=== PATIENT | male | born 1960 | race Caucasian/White ===

== ENCOUNTER → 2017-11-22 | Outpatient (CLI) | payer BC ==
[2017-11-22 12:04] LABS: ALT 35 U/L (21-72); AST 26 U/L (17-59); Albumin 4.4 g/dL (3.5-5.0); Alkaline Phosphatase 54 U/L (38-126); Anion Gap 12 mmol/L; Blood Urea Nitrogen 14 mg/dL (9-20); Calcium 9.9 mg/dL (8.4-10.2); Carbon Dioxide 29 mmol/L (22-30); Chloride 100 mmol/L (98-107); Cholesterol 115 mg/dL (<200); Glucose 105 mg/dL (74-99); HDL Cholesterol 36 mg/dL (40-60); LDL Cholesterol,Calculated 55 mg/dL (0-99); Potassium 4.7 mmol/L (3.5-5.1); Sodium 141 mmol/L (137-145); Total Bilirubin 1.6 mg/dL (0.2-1.3); Total Protein 6.9 g/dL (6.3-8.2); Triglycerides 118 mg/dL (<150)
== END ==
LOC: LABWHC1 11:31
PROVIDERS: ATTEND Internal Medicine Interventional Cardiology
DX: E78.2 Mixed hyperlipidemia (principal)
CPT/HCPCS: 36415; 80053; 80061

== ENCOUNTER → 2018-10-07 | Outpatient (CLI) | payer BC ==
[2018-10-07 07:23] LABS: HCT 43.5 % (39.0-53.0); HGB 14.3 gm/dL (13.0-17.5); MCH 30.5 pg (25.0-35.0); MCHC 32.9 g/dL (31.0-37.0); MCV 92.7 fL (80.0-100.0); Mean Platelet Volume 7.8; Platelet Count 225 k/uL (150-450); RBC 4.69 m/uL (4.30-5.90); RDW 13.1 % (11.5-15.5); WBC 6.4 k/uL (3.8-10.6)
[2018-10-07 12:00] LABS: Albumin 4.5 g/dL (3.80-4.90); Albumin/Globulin Ratio 2.25 (1.60-3.17); Anion Gap 8.2 mmol/L (4.00-12.00); Calcium 9.9 mg/dL (8.7-10.3); Carbon Dioxide 25.8 mmol/L (21.6-31.8); LDL Cholesterol,Calculated 66.6 mg/dL (0.0-131.0); Potassium 4.5 mmol/L (3.5-5.5); Total Bilirubin 2.7 mg/dL (0.2-1.2); Total Protein 6.5 g/dL (6.2-8.2); VLDL Calculation 22.4 mg/dL (5.00-40.00)
== END | disposition home or self-care (01) ==
LOC: LABWHC1 06:45
PROVIDERS: ATTEND Internal Medicine
DX: E87.8 Other disorders of electrolyte and fluid balance, not elsewhere classified (principal); E78.41 Elevated Lipoprotein(a); R53.83 Other fatigue; N40.0 Benign prostatic hyperplasia without lower urinary tract symptoms; E78.2 Mixed hyperlipidemia
CPT/HCPCS: 36415; 80053; 80061; 84153; 85027

== ENCOUNTER → 2019-07-03 | Outpatient (CLI) | payer BC ==
[2019-07-03 10:22] LABS: Basophils # (A) 0.1 k/uL (0-0.2); Basophils % (A) 1 %; Eosinophils # (A) 0.4 k/uL (0-0.7); Eosinophils % (A) 5 %; HCT 42.1 % (39.0-53.0); Lymphocytes # (A) 1.6 k/uL (1.0-4.8); Lymphocytes % (A) 22 %; MCH 31.4 pg (25.0-35.0); MCHC 33.3 g/dL (31.0-37.0); MCV 94.4 fL (80.0-100.0); Mean Platelet Volume 8.5; Monocytes # (A) 0.5 k/uL (0-1.0); Monocytes % (A) 7 %; Neutrophils # (A) 4.4 k/uL (1.3-7.7); Neutrophils % (A) 62 %; Platelet Count 209 k/uL (150-450); RBC 4.46 m/uL (4.30-5.90); RDW 12.5 % (11.5-15.5); WBC 7.1 k/uL (3.8-10.6)
[2019-07-03 17:04] LABS: African American GFR (CKD) 85.3 (60.0-200.0); Albumin 4.3 g/dL (3.80-4.90); Albumin/Globulin Ratio 2.39 (1.60-3.17); Anion Gap 6.4 mmol/L (4.00-12.00); BUN/Creat Ratio 12.73 Ratio (12.00-20.00); Calcium 9.9 mg/dL (8.7-10.3); Carbon Dioxide 27.6 mmol/L (21.6-31.8); Chol/HDL Ratio 3.2; Globulin 1.8 g/dL (1.6-3.3); LDL Cholesterol,Calculated 60.2 mg/dL (0.0-131.0); Non-African American GFR(CKD) 73.6 (60.0-200.0); Potassium 4.8 mmol/L (3.5-5.5); Total Bilirubin 1.5 mg/dL (0.2-1.2); Total Protein 6.1 g/dL (6.2-8.2); VLDL Calculation 16.8 mg/dL (5.00-40.00)
== END ==
LOC: LABWHC1 09:19
PROVIDERS: ATTEND Internal Medicine Interventional Cardiology
DX: E78.5 Hyperlipidemia, unspecified (principal); E87.8 Other disorders of electrolyte and fluid balance, not elsewhere classified; R79.9 Abnormal finding of blood chemistry, unspecified; Z12.9 Encounter for screening for malignant neoplasm, site unspecified; Z12.5 Encounter for screening for malignant neoplasm of prostate; Z13.228 Encounter for screening for other metabolic disorders; Z13.220 Encounter for screening for lipoid disorders
CPT/HCPCS: 36415; 80053; 80061; 84153; 85025

== ENCOUNTER 2022-06-21 09:02 | Observation (INO) | payer BC ==
[2022-06-21] MEDS ORDERED: ASPIRIN 81 MG PO STA (09:54)
[2022-06-21] MEDS ORDERED: NITROGLYCERIN OINT 1 INCH/GM PACKET TOPICAL STA (09:54)
--- NOTE | 2022-06-21 09:57 | ED ---
General Adult HPI - General Chief complaint: Chest Pain Stated complaint: Chest Pain Time Seen by Provider: 06/21/22 09:22 Source: patient, RN notes reviewed, old records reviewed (Unable to locate a previous EKG) Mode of arrival: ambulatory Limitations: no limitations - History of Present Illness Initial comments: Patient is a pleasant 61-year-old male presenting to the emergency Department with chest discomfort. Onset of symptoms was 2 days ago. Symptoms have been intermittent. Symptoms do worsen with exertion. Discomfort feels like pressure. When it occurs discomfort does get up to 5/10. Discomfort currently is near resolved. No associated dyspnea, nausea, or diaphoresis. No history of similar symptoms previously however patient does have history of congestive heart failure. No leg pain or leg swelling. - Related Data Allergies Allergy/AdvReac Type Severity Reaction Status Date / Time No Known Allergies Allergy Verified 06/21/22 09:15 Review of Systems ROS Statement: Those systems with pertinent positive or pertinent negative responses have been documented in the HPI. ROS Other: All systems not noted in ROS Statement are negative. Constitutional: Denies: fever Eyes: Denies: eye pain ENT: Denies: ear pain Respiratory: Denies: cough Cardiovascular: Reports: as per HPI, chest pain Endocrine: Denies: fatigue Gastrointestinal: Denies: abdominal pain Genitourinary: Denies: urgency Musculoskeletal: Denies: back pain Skin: Denies: rash Neurological: Denies: weakness Past Medical History Past Medical History: Heart Failure History of Any Multi-Drug Resistant Organisms: None Reported Past Surgical History: Appendectomy Past Psychological History: No Psychological Hx Reported Smoking Status: Never smoker Past Alcohol Use History: None Reported Past Drug Use History: None Reported General Exam Limitations: no limitations General appearance: alert, in no apparent distress Head exam: Present: normocephalic Eye exam: Present: normal appearance Neck exam: Present: normal inspection Respiratory exam: Present: normal lung sounds bilaterally. Absent: chest wall tenderness Cardiovascular Exam: Present: regular rate, normal rhythm, normal heart sounds Expanded Peripheral pulses: 2+: Radial (R), Radial (L), Dorsalis Pedis (R), Dorsalis Pedis (L) GI/Abdominal exam: Present: soft. Absent: tenderness Extremities exam: Present: normal inspection. Absent: pedal edema, calf tenderness Neurological exam: Present: alert Psychiatric exam: Present: normal affect, normal mood Skin exam: Present: normal color Course Vital Signs 06/21/22 06/21/22 09:11 10:25 Temperature 98 F Pulse Rate 66 58 L Respiratory 18 17 Rate Blood Pressure 118/76 112/73 O2 Sat by Pulse 98 99 Oximetry EKG Findings - EKG Results: EKG: interpreted by ERMD (Septal Q waves. Poor R-wave progression. Inverted T waves inferior.), sinus rhythm, normal axis EKG shows: bradycardia Medical Decision Making - Medical Decision Making patient reevaluated and updated. Dr. Crisostomo has been paged for admission, covering for Dr. Urias - Lab Data Result diagrams: 06/21/22 10:29 06/21/22 10:29 Lab Results 06/21/22 06/21/22 06/21/22 Range/Units 10:29 10:29 10:29 WBC 7.6 (3.8-10.6) k/uL RBC 5.07 (4.30-5.90) m/uL Hgb 15.7 (13.0-17.5) gm/dL Hct 46.7 (39.0-53.0) % MCV 92.0 (80.0-100.0) fL MCH 30.9 (25.0-35.0) pg MCHC 33.6 (31.0-37.0) g/dL RDW 12.3 (11.5-15.5) % Plt Count 217 (150-450) k/uL MPV 8.4 Neutrophils % 68 % Lymphocytes % 18 % Monocytes % 6 % Eosinophils % 5 % Basophils % 1 % Neutrophils # 5.1 (1.3-7.7) k/uL Lymphocytes # 1.4 (1.0-4.8) k/uL Monocytes # 0.4 (0-1.0) k/uL Eosinophils # 0.4 (0-0.7) k/uL Basophils # 0.1 (0-0.2) k/uL PT 11.0 (9.0-12.0) sec INR 1.1 (<1.2) APTT 24.2 (22.0-30.0) sec D-Dimer 0.29 (<0.60) mg/L FEU Sodium 137 (137-145) mmol/L Potassium 4.9 (3.5-5.1) mmol/L Chloride 105 (98-107) mmol/L Carbon Dioxide 25 (22-30) mmol/L Anion Gap 7 mmol/L BUN 13 (9-20) mg/dL Creatinine 1.07 (0.66-1.25) mg/dL Est GFR (CKD-EPI)AfAm 87 (>60 ml/min/1.73 sqM) Est GFR (CKD-EPI)NonAf 75 (>60 ml/min/1.73 sqM) Glucose 124 H (74-99) mg/dL Calcium 9.5 (8.4-10.2) mg/dL Magnesium 2.1 (1.6-2.3) mg/dL Total Bilirubin 2.2 H (0.2-1.3) mg/dL AST 29 (17-59) U/L ALT 29 (4-49) U/L Alkaline Phosphatase 67 (38-126) U/L Troponin I (0.000-0.034) ng/mL Total Protein 7.2 (6.3-8.2) g/dL Albumin 4.4 (3.5-5.0) g/dL 06/21/22 Range/Units 10:29 WBC (3.8-10.6) k/uL RBC (4.30-5.90) m/uL Hgb (13.0-17.5) gm/dL Hct (39.0-53.0) % MCV (80.0-100.0) fL MCH (25.0-35.0) pg MCHC (31.0-37.0) g/dL RDW (11.5-15.5) % Plt Count (150-450) k/uL MPV Neutrophils % % Lymphocytes % % Monocytes % % Eosinophils % % Basophils % % Neutrophils # (1.3-7.7) k/uL Lymphocytes # (1.0-4.8) k/uL Monocytes # (0-1.0) k/uL Eosinophils # (0-0.7) k/uL Basophils # (0-0.2) k/uL PT (9.0-12.0) sec INR (<1.2) APTT (22.0-30.0) sec D-Dimer (<0.60) mg/L FEU Sodium (137-145) mmol/L Potassium (3.5-5.1) mmol/L Chloride (98-107) mmol/L Carbon Dioxide (22-30) mmol/L Anion Gap mmol/L BUN (9-20) mg/dL Creatinine (0.66-1.25) mg/dL Est GFR (CKD-EPI)AfAm (>60 ml/min/1.73 sqM) Est GFR (CKD-EPI)NonAf (>60 ml/min/1.73 sqM) Glucose (74-99) mg/dL Calcium (8.4-10.2) mg/dL Magnesium (1.6-2.3) mg/dL Total Bilirubin (0.2-1.3) mg/dL AST (17-59) U/L ALT (4-49) U/L Alkaline Phosphatase (38-126) U/L Troponin I <0.012 (0.000-0.034) ng/mL Total Protein (6.3-8.2) g/dL Albumin (3.5-5.0) g/dL Disposition Clinical Impression: Chest pain Disposition: ADMITTED IP [facility] Is patient prescribed a controlled substance at d/c from ED?: No Referrals: Dayday Urias MD [Primary Care Provider] - 1-2 days Time of Disposition: 11:23
[2022-06-21 10:35] LABS: Basophils # (A) 0.1 k/uL (0-0.2); Basophils % (A) 1 %; Eosinophils # (A) 0.4 k/uL (0-0.7); Eosinophils % (A) 5 %; HCT 46.7 % (39.0-53.0); HGB 15.7 gm/dL (13.0-17.5); Lymphocytes # (A) 1.4 k/uL (1.0-4.8); Lymphocytes % (A) 18 %; MCH 30.9 pg (25.0-35.0); MCHC 33.6 g/dL (31.0-37.0); Mean Platelet Volume 8.4; Monocytes # (A) 0.4 k/uL (0-1.0); Monocytes % (A) 6 %; Neutrophils # (A) 5.1 k/uL (1.3-7.7); Neutrophils % (A) 68 %; Platelet Count 217 k/uL (150-450); RBC 5.07 m/uL (4.30-5.90); RDW 12.3 % (11.5-15.5); WBC 7.6 k/uL (3.8-10.6)
[2022-06-21 10:46] LABS: Albumin 4.4 g/dL (3.5-5.0); Calcium 9.5 mg/dL (8.4-10.2); Magnesium 2.1 mg/dL (1.6-2.3); Potassium 4.9 mmol/L (3.5-5.1); Total Bilirubin 2.2 mg/dL (0.2-1.3); Total Protein 7.2 g/dL (6.3-8.2)
--- NOTE | 2022-06-21 10:48 | XR ---
EXAMINATION TYPE: XR chest 2V DATE OF EXAM: 06/21/2022 HISTORY: Shortness of breath. COMPARISON: 06-23 TECHNIQUE: Single view of the chest is submitted. FINDINGS: Demonstrated are scattered senescent parenchymal change. There is no evidence for focal infiltrate. The heart is stable. Hilar and mediastinal structures are within normal limits. Degenerative changes are seen of the dorsal spine. IMPRESSION: 1. Chronic changes without evidence for acute pulmonary disease.
[2022-06-21 10:51] LABS: INR 1.1 (<1.2); Partial Thromboplastin Time 24.2 sec (22.0-30.0)
[2022-06-21] MEDS ORDERED: NITROGLYCERIN SL TABS 0.4 MG TAB SUBLINGUAL PRN (11:24)
[2022-06-21] MEDS: NITROGLYCERIN OINT 1 INCH/GM PACKET TOPICAL SCH ×3 (13:02→22:58)
[2022-06-21] MEDS: HEPARIN SODIUM,PORCINE/PF 5,000 UNIT/0.5 ML SYRINGE SQ SCH ×2 (17:04→22:57)
[2022-06-21] MEDS: ATORVASTATIN 40 MG TAB PO SCH (20:24)
[2022-06-21] MEDS: METOPROLOL SUCCINATE (ER) 25 MG TAB.ER.24H PO SCH (20:24)
--- NOTE | 2022-06-21 22:44 | P.HPIM ---
History of Present Illness H&P Date: 06/21/22 Chief Complaint: Chest pain Patient is a 61-year-old male with a known history of chronic CHF, hypertrophic cardiomyopathy presents to ER with complaints of chest discomfort mainly in the left retrosternal region. Patient has been having symptoms for the past 2 to 3 days. Patient has been having constant dull pressure-like sensation, 5 out of 10 in severity. No radiation of the pain. Denies any associated nausea vomiting or diaphoresis. No leg swelling. Patient otherwise denies any complaints of cough or sputum production. No headache or dizziness or lightheadedness. No palpitations. Chest x-ray showed chronic changes without evidence for acute pulmonary disease. EKG showed sinus rhythm with T wave versions in the inferior leads. Troponin x3 negative, D-dimer is 0.29 All other laboratory data reviewed. Review of Systems Constitutional: Patient denies any fever or chills . no Generalized weakness. Abdomen: Patient denied any nausea or vomiting or abd. pain Cardiovascular: Patient does have left retrosternal chest pain. no short of breath no palpitations. Respiratory: patient denied any cough . no sputum production. No shortness of breath Neurologic: Patient denied any numbness or tingling headache. Musculoskeletal: Patient denies any complaints of joint swelling or deformity. Skin: Negative Psychiatric: Negative Endocrine: No heat or cold intolerance. No recent weight gain. Genitourinary: No dysuria or hematuria. All other 14 point ROS negative except the above Past Medical History Past Medical History: Heart Failure History of Any Multi-Drug Resistant Organisms: None Reported Past Surgical History: Appendectomy Past Psychological History: No Psychological Hx Reported Smoking Status: Never smoker Past Alcohol Use History: None Reported Past Drug Use History: None Reported Medications and Allergies Home Medications Medication Instructions Recorded Confirmed Type Aspirin 81 mg PO DAILY 06/21/22 06/21/22 History Atorvastatin [Lipitor] 40 mg PO HS 06/21/22 06/21/22 History Metoprolol Succinate (ER) [Toprol 25 mg PO HS 06/21/22 06/21/22 History Xl] Sacubitril/Valsartan [Entresto 24 1 tab PO BID 06/21/22 06/21/22 History mg-26 mg Tablet] Spironolactone [Aldactone] 25 mg PO DAILY 06/21/22 06/21/22 History Allergies Allergy/AdvReac Type Severity Reaction Status Date / Time No Known Allergies Allergy Verified 06/21/22 12:10 Physical Exam Vitals: Vital Signs Temp Pulse Resp BP Pulse Ox 06/21/22 13:00 69 16 128/80 100 06/21/22 12:30 62 15 119/70 100 06/21/22 12:00 61 15 119/85 99 06/21/22 11:30 64 18 111/75 100 06/21/22 11:00 54 L 15 109/82 100 06/21/22 10:25 58 L 17 112/73 99 06/21/22 09:11 98 F 66 18 118/76 98 Intake and Output 06/20/22 06/21/22 06/21/22 22:59 06:59 14:59 Other: Weight 90.718 kg PHYSICAL EXAMINATION: Patient is lying in the bed comfortably, no acute distress, awake alert and oriented.. HEENT: Normocephalic. Neck is supple. Pupils reactive. Nostrils clear. Oral cavity is moist. Neck reveals no JVD, carotid bruits, or thyromegaly. CHEST EXAMINATION: Trachea is central. Symmetrical expansion. Lung leonard clear to auscultation and percussion. CARDIAC: Normal S1, S2 with no gallops. No murmurs ABDOMEN: Soft. Bowel sounds present. Nontender. No organomegaly. No abdominal bruits. Extremities: reveal no edema. No clubbing or cyanosis Neurologically awake, alert, oriented x3 with well-coordinated movements. No focal deficits noted Skin: No rash or skin lesions. Psychiatric: Coperative. Nonsuicidal, Musculoskeletal: No joint swelling or deformity. Normal range of motion. Results CBC & Chem 7: 06/21/22 10:29 06/21/22 10:29 Labs: Abnormal Lab Results - Last 24 Hours (Table) 06/21/22 Range/Units 10:29 Glucose 124 H (74-99) mg/dL Total Bilirubin 2.2 H (0.2-1.3) mg/dL Thrombosis Risk Factor Assmnt - DVT/VTE Prophylaxis DVT/VTE Prophylaxis: Pharmacologic Prophylaxis ordered Assessment and Plan Assessment: Atypical chest pain. Rule out ACS History of chronic CHF EF not known Hypertrophic cardiomyopathy DVT prophylaxis with heparin subcu Plan: Patient with current on telemetry monitoring. Serial EKG and troponin x3. Continue with aspirin and statins and metoprolol and Aldactone as per home regimen. Cardiology was consulted for evaluation. Continue to follow closely. Time with Patient: Greater than 30
[2022-06-21] MEDS: SACUBITRIL/VALSARTAN 24 MG-26 MG TABLET PO SCH (22:57)
[2022-06-22] MEDS: NITROGLYCERIN OINT 1 INCH/GM PACKET TOPICAL SCH ×4 (05:12→23:45)
[2022-06-22 08:57] LABS: Chol/HDL Ratio 3.21 Ratio
[2022-06-22] MEDS: ASPIRIN 325 MG TAB PO SCH (08:59)
[2022-06-22] MEDS: HEPARIN SODIUM,PORCINE/PF 5,000 UNIT/0.5 ML SYRINGE SQ SCH ×3 (08:59→16:10)
[2022-06-22] MEDS: SPIRONOLACTONE 25 MG TAB PO SCH (08:59)
[2022-06-22] MEDS: SACUBITRIL/VALSARTAN 24 MG-26 MG TABLET PO SCH ×2 (08:59→20:31)
--- NOTE | 2022-06-22 10:05 | P.CRDCN ---
History of Present Illness Consult date: 06/22/22 Consult reason: chest pain History of present illness: History of present illness: This is a 61-year-old male patient of Dr. Luke with past medical history of chronic systolic heart failure. Patient had a cardiac catheterization 8 and half years ago, details are not available. Patient gives history of having left upper chest pain that started on and he thought it was going to go away. On Wednesday he exercised on his bike he did not have any chest pain at that time. When he walked at a normal pace he noticed that he had a pulling chest pain sensation the rest of the day. He took it easy on Wednesday. At this time pain seems to be less but not gone away completely. He denies having any sweats, nausea, shortness of breath, the patient's. No fever or chills. No radiation of the pain. EKG reveals sinus bradycardia, occasional PVCs CBC and CMP unremarkable. Troponin negative 3. Triglycerides 122, cholesterol 99, LDL 44, HDL 31. Chest x-ray reveals chronic changes without evidence of acute pulmonary disease Review Of Systems: At the time of my evaluation: Constitutional: No fever, no chills. No weakness, fatigue or lethargy. EENT: No headache. No dizziness. Lungs: No shortness of breath, cough, no sputum production. No wheezing. Cardiovascular: Reports chest pain, no lower extremity edema. No palpitations. No paroxysmal nocturnal dyspnea. No orthopnea. No lightheadedness or dizziness. No syncopal episodes. Abdominal: No abdominal pain. No nausea, vomiting. No diarrhea. No constipation. No bloody or tarry stools.. No loss of appetite. Genitourinary: No dysuria.. No urinary retention. Musculoskeletal: No myalgias. No muscle weakness, no gait dysfunction, no frequent falls. No back pain. No neck pain. Integumentary: No wounds, no lesions. No rash or pruritus. No unusual bruising. Neurologic: No aphasia. No facial droop. No change in mentation. No head injury. No headache. No paralysis. No paresthesia. Psychiatric: No depression. No anxiety. Endocrine: No abnormal blood sugars. Physical examination: Gen: This is a 61-year-old male. He is resting in bed and appears to be comfortable and in no acute distress VS: Reviewed HEENT: Head is atraumatic, normocephalic. Pupils equal, round. Sclerae is anicteric. NECK: Supple. No JVD. LUNGS: Clear to auscultation. No wheezes or rhonchi. No intercostal retractions. HEART: Regular rate and rhythm. No murmur. ABDOMEN: Soft. Bowel sounds are present. No masses. No tenderness. EXTREMITIES: No pedal edema. No calf tenderness. NEUROLOGICAL: Patient is awake, alert and oriented x3. Assessment: Chest pain, atypical, acute coronary syndrome ruled out Chronic systolic heart failure Plan: Continue patient's home medications including atorvastatin 40 mg at bedtime, Toprol-XL 25 mg at bedtime, Entresto, Aldactone Obtain exercise stress echocardiogram. If this is within normal limits, patient is cleared for discharge home from cardiology Obtain 2-D echocardiogram and Doppler study to assess cardiac structure and function Follow-up with Dr. Luke in 1-2 weeks Thank you kindly for this consultation. Nurse practitioner note has been reviewed, I agree with documented findings and plan of care. Patient was seen and examined. Past Medical History Past Medical History: Heart Failure History of Any Multi-Drug Resistant Organisms: None Reported Past Surgical History: Appendectomy Past Anesthesia/Blood Transfusion Reactions: No Reported Reaction Past Psychological History: No Psychological Hx Reported Smoking Status: Never smoker Past Alcohol Use History: None Reported Past Drug Use History: None Reported Medications and Allergies Home Medications Medication Instructions Recorded Confirmed Type Aspirin 81 mg PO DAILY 06/21/22 06/21/22 History Atorvastatin [Lipitor] 40 mg PO HS 06/21/22 06/21/22 History Metoprolol Succinate (ER) [Toprol 25 mg PO HS 06/21/22 06/21/22 History Xl] Sacubitril/Valsartan [Entresto 24 1 tab PO BID 06/21/22 06/21/22 History mg-26 mg Tablet] Spironolactone [Aldactone] 25 mg PO DAILY 06/21/22 06/21/22 History Allergies Allergy/AdvReac Type Severity Reaction Status Date / Time No Known Allergies Allergy Verified 06/21/22 12:10 Physical Exam Vitals: Vital Signs Temp Pulse Pulse Resp BP BP Pulse Ox 06/22/22 02:06 97.6 F 89 16 100/59 100 06/21/22 20:00 16 06/21/22 19:06 97.8 F 68 17 119/65 96 06/21/22 17:00 65 16 119/71 100 06/21/22 15:00 62 14 128/80 97 06/21/22 13:00 69 16 128/80 100 06/21/22 12:30 62 15 119/70 100 06/21/22 12:00 61 15 119/85 99 06/21/22 11:30 64 18 111/75 100 06/21/22 11:00 54 L 15 109/82 100 06/21/22 10:25 58 L 17 112/73 99 06/21/22 09:11 98 F 66 18 118/76 98 Intake and Output 06/21/22 06/22/22 06/22/22 22:59 06:59 14:59 Intake Total 620 250 Balance 620 250 Intake: Oral 620 250 Other: Voiding Method Toilet # Voids 1 Weight 90.718 kg Results 06/21/22 10:29 06/21/22 10:29 Cardiac Enzymes 06/21/22 06/21/22 06/21/22 Range/Units 10:29 10:29 13:09 AST 29 (17-59) U/L Troponin I <0.012 <0.012 (0.000-0.034) ng/mL 06/21/22 Range/Units 17:55 AST (17-59) U/L Troponin I <0.012 (0.000-0.034) ng/mL Coagulation 06/21/22 Range/Units 10:29 PT 11.0 (9.0-12.0) sec APTT 24.2 (22.0-30.0) sec CBC 06/21/22 Range/Units 10:29 WBC 7.6 (3.8-10.6) k/uL RBC 5.07 (4.30-5.90) m/uL Hgb 15.7 (13.0-17.5) gm/dL Hct 46.7 (39.0-53.0) % Plt Count 217 (150-450) k/uL Comprehensive Metabolic Panel 06/21/22 Range/Units 10:29 Sodium 137 (137-145) mmol/L Potassium 4.9 (3.5-5.1) mmol/L Chloride 105 (98-107) mmol/L Carbon Dioxide 25 (22-30) mmol/L BUN 13 (9-20) mg/dL Creatinine 1.07 (0.66-1.25) mg/dL Glucose 124 H (74-99) mg/dL Calcium 9.5 (8.4-10.2) mg/dL AST 29 (17-59) U/L ALT 29 (4-49) U/L Alkaline Phosphatase 67 (38-126) U/L Total Protein 7.2 (6.3-8.2) g/dL Albumin 4.4 (3.5-5.0) g/dL Current Medications Generic Name Dose Route Start Last Admin Trade Name Freq PRN Reason Stop Dose Admin Aspirin 325 mg 06/22/22 09:00 Aspirin 325 Mg Tab PO DAILY DOUGIE Atorvastatin Calcium 40 mg 06/21/22 21:00 06/21/22 20:24 Atorvastatin 40 Mg Tab PO 40 mg HS DOUGIE Administration Heparin Sodium (Porcine) 5,000 unit 06/21/22 16:00 06/21/22 22:57 Heparin Sodium,Porcine/Pf 5,000 Unit/0.5 Ml Syringe SQ 5,000 unit Q8HR DOUGIE Administration Metoprolol Succinate 25 mg 06/21/22 21:00 06/21/22 20:24 Metoprolol Succinate (Er) 25 Mg Tab.Er.24h PO 25 mg HS DOUGIE Administration Nitroglycerin 0.4 mg 06/21/22 11:24 Nitroglycerin Sl Tabs 0.4 Mg Tab SUBLINGUAL Q5M PRN Chest Pain Nitroglycerin 1 inch 06/21/22 12:00 06/22/22 05:12 Nitroglycerin Oint 1 Inch/Gm Packet TOPICAL Not Given Q6HR [facility] Sacubitril/Valsartan 1 each 06/21/22 21:00 06/21/22 22:57 Sacubitril/Valsartan 24 Mg-26 Mg Tablet PO 1 each BID DOUGIE Administration Spironolactone 25 mg 06/22/22 09:00 Spironolactone 25 Mg Tab PO DAILY DOUGIE Intake and Output 06/21/22 06/22/22 06/22/22 22:59 06:59 14:59 Intake Total 620 250 Balance 620 250 Intake: Oral 620 250 Other: Voiding Method Toilet # Voids 1 Weight 90.718 kg 06/21/22 10:29 06/21/22 10:29
[2022-06-22] MEDS ORDERED: ASPIRIN 325 MG TAB PO STA (12:50)
[2022-06-22] MEDS ORDERED: NITROGLYCERIN SL TABS 0.4 MG TAB SUBLINGUAL PRN (12:50)
[2022-06-22] MEDS ORDERED: ATORVASTATIN 80 MG TAB PO STA (12:50)
[2022-06-22] MEDS ORDERED: ALPRAZolam 0.25 MG TAB PO PRN (12:50)
[2022-06-22] MEDS ORDERED: ALPRAZolam 0.5 MG TAB PO PRN (12:50)
--- NOTE | 2022-06-22 12:57 | CA ---
Stress Echo Report Thompson Martinez Age: 61 Gender: M : 1960 Exam Date: 06/22/2022 12:14 Exam Location: [facility] Ht (in): 66 Wt (lb): 200 Ordering Physician: Tara Paiz Referring Physician: [id number] Supervisor [place]: ROBERT Technologist Procedure CPT: Indication: CP ICD-9 Codes: Rhythm: Patient History: CHEST PAIN, HTN, ELEVATED CHOLESTEROL, FAMILY HX OF HEART DISEASE, PRIOR CARDIAC CATH Cardiac Medications: Medications in past 24 hours: Contrast: Lumason Stress Results Protocol: Adarsh Total dose(mL): Exercise Duration (min:sec): Max ST Depression (mm): Angina Score: Oneil Score: METS: 9.5 Resting HR: 92 Resting BP: 148 / 82 Peak HR: 136 Peak BP: 185 / 85 Max Predicted HR: 159 86 % Max Predicted HR Target HR: 135 Double Product: [id number] Stress Summary: BP Response: Reason for Termination: MAX EXERTION/TARGET HR Cardiac Symptoms: ECG Analysis Resting ECG: Normal sinus rhythm probably progression Stress ECG: Patient exercised on Adarsh protocol for 8 minutes achieving 9 METs 85% of predicted maximal heart rate without chest pain or diagnostic ST segment depression Arrhythmia: Frequent PVCs Echo Analysis Resting Echo: Left ventricle appears dilated with diffuse global hypokinesis with severe LV systolic dysfunction with an ejection fraction of 20-25% Peak Echo Analysis: A contrast agent was used to enhance endocardial definition no evidence of exercise induced wall motion abnormalities MEASUREMENTS (Male/Female) Normal Values CONCLUSIONS Good exercise tolerance negative stress test by EKG criteria Dilated cardiomyopathy without any stress-induced ischemia Dr. Andrew Caballero MD (Electronically Signed) Final Date: 22 June 2022 12:56
[2022-06-22] MEDS: ATORVASTATIN 40 MG TAB PO SCH (13:04)
--- NOTE | 2022-06-22 14:00 | P.PN ---
Subjective Progress Note Date: 06/22/22 Patient is a 61-year-old male with a known history of chronic CHF, hypertrophic cardiomyopathy presents to ER with complaints of chest discomfort mainly in the left retrosternal region. Patient has been having symptoms for the past 2 to 3 days. Patient has been having constant dull pressure-like sensation, 5 out of 10 in severity. No radiation of the pain. Denies any associated nausea vomiting or diaphoresis. No leg swelling. Patient otherwise denies any complaints of cough or sputum production. No headache or dizziness or lightheadedness. No palpitations. Chest x-ray showed chronic changes without evidence for acute pulmonary disease. EKG showed sinus rhythm with T wave versions in the inferior leads. Troponin x3 negative, D-dimer is 0.29 All other laboratory data reviewed. 06/22/2022 Patient is monitored resting in bed today. he Continues to report chest tightness rating 2/10. Underwent stress echo today and will be going for cardiac catheterization tomorrow. Negative for stress induced ischemia, however patient has dilated cardiomyopathy, Echocardiogram shows EF 20 -25% with diffuse global hypokinesis. Continues on aspirin. No shortness of breath. Lipid panel showing triglycerides of 122, cholesterol 99, LDL 44, HDL 31. Heart rate 71, blood pressure 121/84. Review of Systems Constitutional: Denied any fatigue denied any fever. Cardio vascular: Resports chest pain 2/10, chest tightness Gastrointestinal: denied any nausea, vomiting, diarrhea Pulmonary: Denied any shortness of breath cough Neurologic denied any new focal deficits All inpatient medications were reviewed and appropriate changes in these medications as dictated in the interval history and assessment and plan. PHYSICAL EXAMINATION: GENERAL: The patient is alert and oriented x3, not in any acute distress. Well developed, well nourished. HEENT: Pupils are round and equally reacting to light. EOMI. No scleral icterus. No conjunctival pallor. Normocephalic, atraumatic. No pharyngeal erythema. No t hyromegaly. CARDIOVASCULAR: S1 and S2 present. No murmurs, rubs, or gallops. PULMONARY: Chest is clear to auscultation, no wheezing or crackles. ABDOMEN: Soft, nontender, nondistended, normoactive bowel sounds. No palpable organomegaly. MUSCULOSKELETAL: No joint swelling or deformity. EXTREMITIES: No cyanosis, clubbing, or pedal edema. NEUROLOGICAL: Gross neurological examination did not reveal any focal deficits. SKIN: No rashes. Assessment and Plan Assessment Atypical chest pain rule out ACS Chronic systolic heart failure Dilated cardiomyopathy with an EF of 20-25% GI prophylaxis DVT prophylaxis Plan Patient to continue all current cardiac medications Cardiac catheterization tomorrow Possible DC in the next 24 to 48 hours The impression and plan of care has been dictated by Alisson Davies Nurse Practitioner as directed. Dr. Barry MD I have performed a history and physical examination and medical decision making of this patient, discussed the same with the dictator, and agree with the dictators assessment and plan as written, documented as a scribe. Based on total visit time, I have performed more than 50% of this visit. Objective - Vital Signs Vital signs: Vital Signs Temp 97.3 F L 06/22/22 13:47 Pulse 71 06/22/22 13:47 Resp 16 06/22/22 13:47 BP 121/84 06/22/22 13:47 Pulse Ox 100 06/22/22 13:47 FiO2 Intake & Output 06/21/22 06/22/22 06/22/22 18:59 06:59 18:59 Intake Total 120 750 Balance 120 750 Weight 90.718 kg Intake: Oral 120 750 Other: Voiding Method Toilet # Voids 1 - Labs CBC & Chem 7: 06/21/22 10:29 06/21/22 10:29 Labs: Abnormal Lab Results - Last 24 Hours (Table) 06/22/22 Range/Units 04:28 HDL Cholesterol 31.00 L (40.00-60.00) mg/dL Assessment and Plan Time with Patient: Less than 30
--- NOTE | 2022-06-22 16:23 | CA ---
Transthoracic Echo Report Name: Thompson Martinez Age: 61 Gender: M : 1960 Exam Date: 06/22/2022 12:42 Exam Location: [facility] Ht (in): 66 Wt (lb): 200 Ordering Physician: Tara Paiz Attending/Referring Phys: [id number], [employer] Signal Operator Helen Sauceda RDCS Procedure CPT: Indications: LVF Cardiac Hx: Technical Quality: Fair Contrast 1: Lumason Total Dose (mL): 4 Contrast 2: Total Dose (mL): MEASUREMENTS (Male / Female) Normal Values 2D ECHO LV Diastolic Diameter PLAX 5.6 cm 4.2 - 5.9 / 3.9 - 5.3 cm LV Systolic Diameter PLAX 4.6 cm IVS Diastolic Thickness 1.2 cm 0.6 - 1.0 / 0.6 - 0.9 cm LVPW Diastolic Thickness 1.1 cm 0.6 - 1.0 / 0.6 - 0.9 cm LV Relative Wall Thickness 0.4 RV Internal Dim ED PLAX 2.8 cm LV Diastolic Volume MOD BP 152.5 cm??? 67 - 155 / 56 - 104 cm??? LV Systolic Volume MOD BP 104.6 cm??? 22 - 58 / 19 - 49 cm??? LV Ejection Fraction MOD BP 31.4 % >= 55 % LV Cardiac Index MOD BP 1881.0 cm???/min???m??? LV Diastolic Volume MOD 4C 164.8 cm??? LV Systolic Volume MOD 4C 123.2 cm??? LV Ejection Fraction MOD 4C 25.2 % LV Cardiac Index MOD 4C 1631.4 cm???/min???m??? LV Diastolic Length 4C 9.4 cm LV Systolic Length 4C 8.6 cm LV Diastolic Volume MOD 2C 137.3 cm??? LV Systolic Volume MOD 2C 85.1 cm??? LV Ejection Fraction MOD 2C 38.0 % LV Cardiac Index MOD 2C 2049.5 cm???/min???m??? LV Diastolic Length 2C 9.0 cm LV Systolic Length 2C 8.1 cm LA Volume 60.4 cm??? 18 - 58 / 22 - 52 cm??? M-MODE Aortic Root Diameter MM 3.3 cm LA Systolic Diameter MM 3.5 cm LA Ao Ratio MM 1.1 AV Cusp Separation MM 2.2 cm DOPPLER AV Peak Velocity 136.1 cm/s AV Peak Gradient 7.4 mmHg LVOT Peak Velocity 77.6 cm/s LVOT Peak Gradient 2.4 mmHg MV Area PHT 3.6 cm??? Mitral E Point Velocity 64.5 cm/s Mitral A Point Velocity 97.5 cm/s Mitral E to A Ratio 0.7 MV Deceleration Time 211.9 ms MV E' Velocity 4.1 cm/s Mitral E to MV E' Ratio 15.7 FINDINGS Left Ventricle Mildly increased septal wall thickness. Severely increased left ventricular systolic volume. Moderately decreased left ventricular ejection fraction. Left ventricular ejection fraction is estimated at 25-30%. Right Ventricle Normal right ventricular size and function. Right ventricular systolic pressure within normal limits. Right Atrium Normal right atrial size. Left Atrium Mildly increased left atrial volume. Mildly increased left atrial area. Mitral Valve Structurally normal mitral valve. [id number] mitral regurgitation. Aortic Valve No aortic valve stenosis or regurgitation. Tricuspid Valve Mild tricuspid regurgitation. Pulmonic Valve Trace pulmonic regurgitation. Pericardium No pericardial effusion. Aorta Normal size aortic root and proximal ascending aorta. CONCLUSIONS Severe LV systolic dysfunction Mild to moderate mitral regurgitation Previewed by: Dr. Andrew Caballero MD (Electronically Signed) Final Date: 22 June 2022 16:23
[2022-06-22] MEDS: METOPROLOL SUCCINATE (ER) 25 MG TAB.ER.24H PO SCH (20:36)
[2022-06-23] MEDS: NITROGLYCERIN OINT 1 INCH/GM PACKET TOPICAL SCH (04:27)
[2022-06-23] MEDS: ASPIRIN 325 MG TAB PO SCH (05:24)
[2022-06-23] MEDS ORDERED: ATORVASTATIN 80 MG TAB PO ONE (06:00)
[2022-06-23] MEDS ORDERED: ASPIRIN 325 MG TAB PO ONE (06:00)
[2022-06-23] MEDS ORDERED: HEPARIN SODIUM,PORCINE 2,500 UNIT in SODIUM CHLORIDE 0.9% 250 ML IRRIGATION PRN (07:00)
[2022-06-23] MEDS ORDERED: HEPARIN SODIUM,PORCINE 10,000 UNIT in SODIUM CHLORIDE 0.9% 1,000 ML IRRIGATION PRN (07:00)
[2022-06-23] MEDS ORDERED: VERAPAMIL 2.5 MG/ML 2 ML AMP ONE (10:25)
[2022-06-23] MEDS ORDERED: HEPARIN SODIUM 1,000 UN/ML (10ML VL) ONE (10:25)
[2022-06-23] MEDS ORDERED: fentaNYL (PF) 50 MCG/ML 2 ML AMP ONE (10:26)
[2022-06-23] MEDS ORDERED: SODIUM CHLORIDE 0.9% 1,000 ML IV ONE (10:41)
[2022-06-23] MEDS ORDERED: fentaNYL (PF) 50 MCG/ML 2 ML AMP IV ONE (10:51)
[2022-06-23] MEDS ORDERED: LIDOCAINE 1% INJ 10MG/ML (5 ML VIAL-PF) SQ ONE (10:54)
[2022-06-23] MEDS ORDERED: VERAPAMIL SYRINGE (5 MG/10 ML) INTRAARTER ONE (10:55)
[2022-06-23] MEDS ORDERED: HEPARIN SODIUM 1,000 UN/ML (10ML VL) IV ONE (11:04)
[2022-06-23] MEDS ORDERED: IOPAMIDOL-370 125ML BTL INJ ONE (11:10)
[2022-06-23] MEDS ORDERED: RX INFO: IV CONTRAST WAS GIVEN 1 EACH MISC MISCELLANE PRN (11:20)
[2022-06-23] MEDS ORDERED: SODIUM CHLORIDE 0.9% 1,000 ML IV SCH (11:30)
--- NOTE | 2022-06-23 11:30 | P.CARDCATH ---
Date of Procedure: 06/23/22 Description of Procedure: Cardiac Catheterization: the patient is a 61-year-old male with a known history of nonischemic cardiomyopathy that presented with chest discomfort. Had no evidence of myocardial infarction but there is evidence of worsening of his LV systolic function. Recommendations were made regarding cardiac catheterization, the risks and the complications were discussed with the patient who is in full understanding and agreement. Procedure Description: Patient was brought to drop crew laborer in fasting semi-sedated state after receiving Fentanyl and Benadryl achieiving moderate conscious sedated state. Using Xylocaine Anesthesia and Seldinger technique, a 6-Botswanan sheath was introduced in the right radial artery . Subsequently, selective coronary angiography was performed using a 5-Botswanan 3.5 bend Kel catheter. Multiple views of the coronary artery including hemiaxial views were obtained. The 5 andorran pigtail catheter was used to cross the aortic valve and LVEDP was calculated. left ventriculogram was performed in the JIMENEZ view.Following that, catheter and sheath were removed. Hemostasis was obtained with deployment of TR band . There was no immediate complication. Patient was returned to room in stable condition. Of note, the patient received a total of 4500 units of intravenous heparin as well as intra-arterial verapamil. Findings: fluoroscopy: Calcification of the LAD was noted Left main: this is a large size vessel,trifurcating into LAD and left circumflex and ramus intermedius, left main has no high-grade stenosis LAD: this is a large-size vessel giving rise to a large diagonal branch, the LAD after the diagonal branch has a 20-30% plaque, the rest of the vessel has no high-grade stenosis. Left circumflex: this is a nondominant vessel, giving rise to a large obtuse margin branch that has no high-grade stenosis RCA: this is a large dominant vessel, bifurcating distally, the RCA has no evidence of high-grade stenosis Ramus intermedius: This vessel is moderate in caliber and has no evidence of high-grade stenosis Left Ventriculogram: performed in the JIMENEZ view revealed a dilated left ventricle with severe global hypokinesis. Ejection fraction was 30-35% Hemodynamics: there was no gradient across the aortic valve , LVEDP was 20-25 mmHg Conclusion: 1. calcified LAD with mild disease in the midsegment 2. severe nonischemic cardiomyopathy 3. elevated LVEDP 4. right dominance Recommendations: I have recommended to continue present therapy with close follow-up of his systolic function to make a decision if an ICD is indicated. The findings and the recommendations were discussed with the patient and he was in full understanding and agreement. Duration of sedation is 19 minutes.
[2022-06-23] MEDS: SPIRONOLACTONE 25 MG TAB PO SCH (12:36)
[2022-06-23] MEDS: HEPARIN SODIUM,PORCINE/PF 5,000 UNIT/0.5 ML SYRINGE SQ SCH (12:36)
[2022-06-23] MEDS: SACUBITRIL/VALSARTAN 24 MG-26 MG TABLET PO SCH (14:01)
--- NOTE | 2022-06-23 15:27 | P.DS ---
Providers Date of admission: 06/21/22 11:24 Attending physician: Daniel Godoy MD Consults: 06/21/22 11:24 Consult Physician Urgent Consulting Provider: Eddie Macias Consult Reason/Comments: cp Do you want consulting provider notified?: Yes Primary care physician: Dayday Urias MD Hospital Course: Final Diagnosis Atypical chest pain rule out ACS with negative cardiac catheterization Chronic systolic heart failure Dilated cardiomyopathy with an EF of 20-25% Coronary artery disease Full Code Discharge Disposition Patient is discharge in stable condition home with overall guarded prognosis. He has undergo cardiac catheterization via right radial access site and will DC home later today once recovered postoperatively. Recommend to follow up with cardiology in 1 to 2 weeks as recommended. Also patient to follow up with primary care in 1 to 2 days as well this was discussed. Continue current cardiac recommendations. No lifting more than 5 pounds for 5 days with right wrist site. Hospital Course This is a 61 year old male with history of heart failure, dilated cardiomyopathy presents to ER with complaints of chest discomfort mainly in the left retrosternal region. Patient has been having symptoms for the past 2 to 3 days. Patient has been having constant dull pressure-like sensation, 5 out of 10 in severity. No radiation of the pain. Denies any associated nausea vomiting or diaphoresis. No leg swelling. Patient otherwise denies any complaints of cough or sputum production. No headache or dizziness or lightheadedness. No palpitations. Chest x-ray showed chronic changes without evidence for acute pulmonary disease. EKG showed sinus rhythm with T wave versions in the inferior leads. Troponin x3 negative, D-dimer is 0.29. Patient admitted in observation and cardiology has been consulted. Patient underwent echocardiogram showing an EF of 20-25% with diffuse global hypokinesis. He did have a positive stress test and underwent cardiac catheterization. Findings include calcified LAD with mild disease midsegment, severe nonischemic cardiomyopathy, elevated LVEDP, right dominance. Patient is recommended to continue current cardiac medications and follow up with cardiology. Possible ICD in the future. Patient will be discharged home today. 06/23/2022 Patient is evaluated today resting in bed. Reports chest pain has resolved at this time. He is recommended to optimize medications and follow up with cardiology to monitor systolic function. He denies shortness of breath, denies dizziness, denies palpitations. Lungs are clear, S1 s2 auscultated. Focal neurological exam is negative patient is alert x 3. He will be discharged home today. Please see medication reconciliation for a list of current medications. Thank you for allowing us to participate in the care of this patient. The impression and plan of care has been dictated by Alisson Davies, Nurse Practitioner as directed. Dr. Barry MD I have performed a history and physical examination and medical decision making of this patient, discussed the same with the dictator, and agree with the dictators assessment and plan as written, documented as a scribe. Based on total visit time, I have performed more than 50% of this visit. Patient Condition at Discharge: Stable Plan - Discharge Summary Discharge Rx Participant: No New Discharge Prescriptions: Continue Spironolactone [Aldactone] 25 mg PO DAILY Sacubitril/Valsartan [Entresto 24 mg-26 mg Tablet] 1 tab PO BID Metoprolol Succinate (ER) [Toprol XL] 25 mg PO HS Aspirin 81 mg PO DAILY Atorvastatin [Lipitor] 40 mg PO HS Discharge Medication List Aspirin 81 mg PO DAILY 06/21/22 [History] Atorvastatin [Lipitor] 40 mg PO HS 06/21/22 [History] Metoprolol Succinate (ER) [Toprol XL] 25 mg PO HS 06/21/22 [History] Sacubitril/Valsartan [Entresto 24 mg-26 mg Tablet] 1 tab PO BID 06/21/22 [Hi story] Spironolactone [Aldactone] 25 mg PO DAILY 06/21/22 [History] Follow up Appointment(s)/Referral(s): Ela Luke MD [STAFF PHYSICIAN] - 1 Week Dayday Urias MD [Primary Care Provider] - 1-2 days Activity/Diet/Wound Care/Special Instructions: Cleared for discharge once TR band removed without complication. Discharge Disposition: HOME SELF-CARE
[2022-06-23 17:08] VITALS: BP 111/71; PULSE 77; RESP 17; TEMP 98.1
[2022-06-24] MEDS ORDERED: ASPIRIN 81 MG PO SCH (09:00)
== END 2022-06-23 17:08 | disposition home or self-care (01) ==
LOC: EC 09:02 → 6NMEDSUR 11:24
PROVIDERS: ADMIT Internal Medicine; ATTEND Internal Medicine
DX: R07.89 Other chest pain (principal); I25.10 Atherosclerotic heart disease of native coronary artery without angina pectoris; I50.22 Chronic systolic (congestive) heart failure; I42.0 Dilated cardiomyopathy; I08.1 Rheumatic disorders of both mitral and tricuspid valves; I49.3 Ventricular premature depolarization; Z79.82 Long term (current) use of aspirin; Z79.899 Other long term (current) drug therapy
CPT/HCPCS: 96372 ×3; 99285; 36415; 94760 ×2; 93005; 93306; 93351; 93458; 85379; 80061; 80053; 83735; 84484; 85025; 85610; 85730; 71046; G0378 ×3; C1769 ×2; C1894; J2001; J3010; J1644 ×3; Q9950; Q9967

== ENCOUNTER 2024-10-17 21:28 | Inpatient (IN) | payer BC ==
--- NOTE | 2024-10-17 21:59 | ED ---
Arrhythmia/Palpitations HPI - General Chief Complaint: Arrhythmia/Palpitations Stated Complaint: Defibulator went off Time Seen by Provider: 10/17/24 21:43 Source: patient Mode of arrival: ambulatory Limitations: no limitations - History of Present Illness Initial Comments: This patient is a 64-year-old man who presents to have evaluation after his AICD fired. The patient states that approximately 2 hours or so ago he was not feeling well. He states that it felt like his heart was fluttering. He decided that he was going to get up and walk it off, and then approximately 10 seconds after standing up to walk his pacer defibrillator fired. The patient was not having other associated symptoms, no chest pain, dyspnea, diaphoresis, nausea or vomiting. He states that it took approximately an hour to get a hold of someone on the phone related to the defibrillator and he was advised to go to the emergency department for further evaluation. MD Complaint: palpitations -: hour(s) Context: occurred during rest, AICD discharge Arrhythmia History: pacemaker, AICD, history of ablation Associated Symptoms: denies other symptoms - Related Data Home Medications Medication Instructions Recorded Confirmed Atorvastatin [Lipitor] 40 mg PO HS 06/21/22 10/18/24 Spironolactone [Aldactone] 25 mg PO DAILY 06/21/22 10/18/24 Aspirin EC [Ecotrin Low Dose] 81 mg PO DAILY 10/18/24 10/18/24 Dapagliflozin Propanediol [Farxiga] 10 mg PO DAILY 10/18/24 10/18/24 Furosemide [Lasix] 20 mg PO DAILY 10/18/24 10/18/24 Metoprolol Succinate (ER) [Toprol 50 mg PO BID 10/18/24 10/18/24 XL] Sacubitril/Valsartan [Entresto 97 1 tab PO BID 10/18/24 10/18/24 mg-103 mg Tablet] Previous Rx's Medication Instructions Recorded Amiodarone [Cordarone] 400 mg PO BID #120 tab 10/19/24 Nitroglycerin Sl Tabs [Nitrostat] 0.4 mg SUBLINGUAL Q5M PRN #10 tab 10/19/24 Allergies Allergy/AdvReac Type Severity Reaction Status Date / Time No Known Allergies Allergy Verified 10/18/24 07:58 Review of Systems ROS Statement: Those systems with pertinent positive or pertinent negative responses have been documented in the HPI. ROS Other: All systems not noted in ROS Statement are negative. Constitutional: Denies: fever, chills Respiratory: Denies: cough, dyspnea Cardiovascular: Reports: palpitations. Denies: chest pain, dyspnea on exertion, edema, syncope Gastrointestinal: Denies: abdominal pain, nausea, vomiting, diarrhea Genitourinary: Denies: dysuria, hematuria Musculoskeletal: Denies: back pain Skin: Denies: rash Neurological: Denies: headache, weakness Psychiatric: Denies: anxiety Past Medical History Past Medical History: Heart Failure History of Any Multi-Drug Resistant Organisms: None Reported Past Surgical History: Ablation, Appendectomy Additional Past Surgical History / Comment(s): Ablation May 2024, Defibrillator Jun 2024 Past Anesthesia/Blood Transfusion Reactions: No Reported Reaction Past Psychological History: No Psychological Hx Reported Smoking Status: Never smoker Past Alcohol Use History: None Reported Past Drug Use History: None Reported - Past Family History Father Family Medical History: Cancer Additional Family Medical History / Comment(s): passed from [place] at 39 Mother Family Medical History: COPD General Exam Limitations: no limitations Course Vital Signs 10/17/24 10/18/24 10/18/24 21:35 01:20 04:39 Temperature 98.5 F Pulse Rate 72 63 60 Respiratory 18 18 16 Rate Blood Pressure 122/75 93/71 99/70 O2 Sat by Pulse 98 98 99 Oximetry 10/18/24 10/18/24 10/18/24 07:16 10:46 13:21 Temperature Pulse Rate 62 62 66 Respiratory 16 18 18 Rate Blood Pressure 95/61 111/76 116/72 O2 Sat by Pulse 95 96 95 Oximetry 10/18/24 10/18/24 10/18/24 15:25 18:29 20:16 Temperature Pulse Rate 61 60 64 Respiratory 20 16 18 Rate Blood Pressure 110/76 115/74 104/74 O2 Sat by Pulse 100 99 Oximetry 10/18/24 21:44 Temperature Pulse Rate 67 Respiratory 16 Rate Blood Pressure 114/87 O2 Sat by Pulse Oximetry EKG Findings - EKG Comments: EKG Findings:: Paced rhythm rate 68 bpm - EKG Results: EKG: interpreted by ERMD - Blocks, [place], Hypertrophy, ST Abn: QRS axis and voltage: left axis deviation (-30 to -90), low voltage (<0.5 MV total QRS and <1.0 MV in each precordial lead) - MT, Pacemaker, Normal: Myocardial infarction: septal MT (old age or indeterminate), anterior MT (old ag e or indeterminate) Medical Decision Making - Medical Decision Making The patient had chest x-ray that I interpreted as negative for acute infiltrate, pneumothorax, congestive heart failure. Was pt. sent in by a medical professional or institution (, PA, STRADDLE BUG OPERATOR, urgent care, hospital, or [place] health care facility...) When possible be specific @ -[No] Did you speak to anyone other than the patient for history (EMS, parent, family, police, friend...)? What history was obtained from this source @ -[No] Did you review nursing and triage notes (agree or disagree)? Why? @ -[I reviewed and agree with nursing and triage notes] Were old charts reviewed (outside hosp., previous admission, EMS record, old EKG, old radiological studies, urgent care reports/EKG's, [place] health [place] facility records)? Report findings @ -[No old charts were reviewed] Differential Diagnosis (chest pain, altered mental status, abdominal pain women, abdominal pain men, vaginal bleeding, weakness, fever, dyspnea, syncope, headache, dizziness, GI bleed, back pain, seizure, CVA, palpatations, mental health, musculoskeletal)? @ -[Differential Chest Pain: Stable Angina, Unstable Angina, STEMI, NSTEMI Aortic Dissection, Pneumothorax, Musculoskeletal, Esophageal Spasm GERD, Cholecystitis, Pancreatitis, Zoster, this is not meant to be an all-inclusive list. EKG interpreted by me (3pts min.). @ -[I interpreted as above] X-rays interpreted by me (1pt min.). @ -[I interpreted as above CT interpreted by me (1pt min.). @ -[None done] U/S interpreted by me (1pt. min.). @ -[None done] What testing was considered but not performed or refused? (CT, X-rays, U/S, labs)? Why? @ -[None] What meds were considered but not given or refused? Why? @ -[None] Did you discuss the management of the patient with other professionals (professionals i.e. , KELVIN, STRADDLE BUG OPERATOR, lab, RT, psych nurse, social media marketing specialist, medical laboratory technician, teacher, life science technical officer, case maker)? Give summary @ -[Case discussed with admitting physician and also with cardiology Was smoking cessation discussed for >3mins.? @ -[No] Was critical care preformed (if so, how long)? @ -[Yes, 35 minutes Were there social determinants of health that impacted care today? How? (Homelessness, low income, unemployed, alcoholism, drug addiction, transportation, low edu. Level, literacy, decrease access to med. care, detention, rehab)? @ -[No] Was there de-escalation of care discussed even if they declined (Discuss DNR or withdrawal of care, Hospice)? DNR status @ -[No] What co-morbidities impacted this encounter? (DM, HTN, Smoking, COPD, CAD, Cancer, CVA, ARF, Chemo, Hep., AIDS, mental health diagnosis, sleep apnea, morbid obesity)? @ -[History of ventricular arrhythmia, AICD placement Was patient admitted / discharged? Hospital course, mention meds given and route, prescriptions, significant lab abnormalities, going to OR and other pertinent info. @ -[Patient is 64-year-old man here to have evaluation after AICD discharge. P atient will be admitted with cardiology consultation no further episodes while in emergency department Undiagnosed new problem with uncertain prognosis? @ -[No] Drug Therapy requiring intensive monitoring for toxicity (Heparin, Nitro, Insulin, Cardizem)? @ -[Amiodarone Were any procedures done? @ -[No] Diagnosis/symptom? @ -[AICD discharge Ventricular arrhythmia Acute, or Chronic, or Acute on Chronic? @ -[Acute Uncomplicated (without systemic symptoms) or Complicated (systemic symptoms)? @ -[Uncomplicated Side effects of treatment? @ -[No] Exacerbation, Progression, or Severe Exacerbation? @ -[No] Poses a threat to life or bodily function? How? (Chest pain, [place], MT, pneumonia, PE, COPD, DKA, ARF, appy, cholecystitis, CVA, Diverticulitis, Homicidal, Suicidal, threat to staff... and all critical care pts) @ -[Yes, requires further cardiology evaluation All treatments are based on ideal body weight as in ED triage - Lab Data Result diagrams: 10/17/24 21:54 10/19/24 07:25 Lab Results 04/08/25 04/08/25 04/08/25 Range/Units 21:54 21:54 21:54 WBC 11.00 H (4.50-10.00) 10*3/uL RBC 5.40 (4.40-5.60) 10*6/uL Hgb 17.0 (13.0-17.0) g/dL Hct 48.7 (39.6-50.0) % MCV 90.2 (80.0-97.0) fL MCH 31.5 (27.0-32.0) pg MCHC 34.9 (32.0-37.0) g/dL Plt Count 221 (140-440) 10*3/uL MPV 11.1 (9.5-12.2) fL Immature Gran % (Auto) 0.3 % Neutrophils % 68.7 % Lymphocytes % 17.5 % Monocytes % 7.3 % Eosinophils % 5.0 % Basophils % 1.2 % Immature Gran # 0.03 (0.00-0.04) 10*3/uL Neutrophils # 7.57 (1.80-7.70) 10*3/uL Lymphocytes # 1.92 (0.90-5.00) 10*3/uL Monocytes # 0.80 (0.20-1.00) 10*3/uL Eosinophils # 0.55 H (0.04-0.35) 10*3/uL Basophils # 0.13 H (0.00-0.10) 10*3/uL PT 11.2 (10.0-12.5) sec INR 1.0 (<1.2) APTT 24.1 (22.0-30.0) sec Sodium 137 (137-145) mmol/L Potassium 4.2 (3.5-5.1) mmol/L Chloride 101 (98-107) mmol/L Carbon Dioxide 27 (22-30) mmol/L Anion Gap 9 mmol/L BUN 20 (9-20) mg/dL Creatinine 1.29 H (0.66-1.25) mg/dL Est GFR (CKD-EPI)AfAm 67 (>60 ml/min/1.73 sqM) Est GFR (CKD-EPI)NonAf 58 (>60 ml/min/1.73 sqM) Glucose 157 H (74-99) mg/dL Calcium 9.9 (8.4-10.2) mg/dL Magnesium 1.9 (1.6-2.3) mg/dL Total Bilirubin 2.0 H (0.2-1.3) mg/dL AST 29 (17-59) U/L ALT 32 (4-49) U/L Alkaline Phosphatase 72 (38-126) U/L Troponin I (0.000-0.034) ng/mL Total Protein 8.4 H (6.3-8.2) g/dL Albumin 4.8 (3.5-5.0) g/dL 10/17/24 Range/Units 21:54 WBC (4.50-10.00) 10*3/uL RBC (4.40-5.60) 10*6/uL Hgb (13.0-17.0) g/dL Hct (39.6-50.0) % MCV (80.0-97.0) fL MCH (27.0-32.0) pg MCHC (32.0-37.0) g/dL Plt Count (140-440) 10*3/uL MPV (9.5-12.2) fL Immature Gran % (Auto) % Neutrophils % % Lymphocytes % % Monocytes % % Eosinophils % % Basophils % % Immature Gran # (0.00-0.04) 10*3/uL Neutrophils # (1.80-7.70) 10*3/uL Lymphocytes # (0.90-5.00) 10*3/uL Monocytes # (0.20-1.00) 10*3/uL Eosinophils # (0.04-0.35) 10*3/uL Basophils # (0.00-0.10) 10*3/uL PT (10.0-12.5) sec INR (<1.2) APTT (22.0-30.0) sec Sodium (137-145) mmol/L Potassium (3.5-5.1) mmol/L Chloride (98-107) mmol/L Carbon Dioxide (22-30) mmol/L Anion Gap mmol/L BUN (9-20) mg/dL Creatinine (0.66-1.25) mg/dL Est GFR (CKD-EPI)AfAm (>60 ml/min/1.73 sqM) Est GFR (CKD-EPI)NonAf (>60 ml/min/1.73 sqM) Glucose (74-99) mg/dL Calcium (8.4-10.2) mg/dL Magnesium (1.6-2.3) mg/dL Total Bilirubin (0.2-1.3) mg/dL AST (17-59) U/L ALT (4-49) U/L Alkaline Phosphatase (38-126) U/L Troponin I 0.012 (0.000-0.034) ng/mL Total Protein (6.3-8.2) g/dL Albumin (3.5-5.0) g/dL Disposition Clinical Impression: AICD discharge Disposition: ADMITTED IP TO THIS HOSP Condition: Fair Is patient prescribed a controlled substance at d/c from ED?: No
[2024-10-17 22:04] LABS: Basophils # (A) 0.13 10*3/uL (0.00-0.10); Basophils % (A) 1.2 %; Eosinophils # (A) 0.55 10*3/uL (0.04-0.35); HCT 48.7 % (39.6-50.0); Lymphocytes # (A) 1.92 10*3/uL (0.90-5.00); Lymphocytes % (A) 17.5 %; MCH 31.5 pg (27.0-32.0); MCHC 34.9 g/dL (32.0-37.0); MCV 90.2 fL (80.0-97.0); Mean Platelet Volume 11.1 fL (9.5-12.2); Monocytes % (A) 7.3 %; Neutrophils # (A) 7.57 10*3/uL (1.80-7.70); Neutrophils % (A) 68.7 %; Platelet Count 221 10*3/uL (140-440); RDW 12.5 % (11.5-14.5)
[2024-10-17 22:15] LABS: Partial Thromboplastin Time 24.1 sec (22.0-30.0); Prothrombin Time 11.2 sec (10.0-12.5)
[2024-10-17 22:35] LABS: ALT 32 U/L (4-49); AST 29 U/L (17-59); African American GFR (CKD) 67 (>60 ml/min/1.73 sqM); Albumin 4.8 g/dL (3.5-5.0); Alkaline Phosphatase 72 U/L (38-126); Anion Gap 9 mmol/L; Blood Urea Nitrogen 20 mg/dL (9-20); Calcium 9.9 mg/dL (8.4-10.2); Carbon Dioxide 27 mmol/L (22-30); Chloride 101 mmol/L (98-107); Glucose 157 mg/dL (74-99); Magnesium 1.9 mg/dL (1.6-2.3); Non-African American GFR(CKD) 58 (>60 ml/min/1.73 sqM); Potassium 4.2 mmol/L (3.5-5.1); Sodium 137 mmol/L (137-145); Total Protein 8.4 g/dL (6.3-8.2)
--- NOTE | 2024-10-17 22:42 | XR ---
EXAMINATION TYPE: XR chest 2V DATE OF EXAM: 10/17/2024 10:32 PM COMPARISON: Chest radiographs from 06/21/2022 TECHNIQUE: XR chest 2V Frontal and lateral views of the chest. CLINICAL INDICATION:Male, 64 years old with history of dysrhythmia; FINDINGS: Lungs/Pleura: There is no evidence of pleural effusion, focal consolidation, or pneumothorax. Pulmonary vascularity: Unremarkable. Heart/mediastinum: Cardiomediastinal silhouette is prominent in size. Two lead cardiac conduction dev ice overlying the left hemithorax with lead tips projecting over the right ventricle and right atrium . Musculoskeletal: No acute osseous pathology. IMPRESSION: Chronic changes without acute pulmonary process. [facility], , 10/17/2024 10:40 PM
[2024-10-18] MEDS ORDERED: NITROGLYCERIN SL TABS 0.4 MG TAB SUBLINGUAL PRN
[2024-10-18] MEDS: DEXTROSE 5% IN WATER 100 ML with AMIODARONE 150 MG IV ONE (00:32)
[2024-10-18] MEDS: AMIODARONE 360 MG in DEXTROSE 5% IN WATER 200 ML IV ONE (00:55)
--- NOTE | 2024-10-18 09:18 | P.HPIM ---
History of Present Illness This is a pleasant 64 years old male with past medical history of multiple medical problems as below. He he had recently placed defibrillator/pacemaker in [place] last June. Yesterday he was trying to get up he was feeling weak and he started walking he got fluttery feeling in his chest this is followed by electric shock from his defibrillator fired off, after that patient felt improvement however he called his doctor at [place] who referred him to the emergency room. Patient denies chest pain or dyspnea currently. No specific GI or symptom. No headache dizziness weakness He denies smoking alcohol illicit drugs. He is afebrile. Blood pressure is 95/61 patient states usually his blood pressure on the low side. He has unremarkable liver enzymes and INR troponin x 3 are negative/0.012 and 0.015 x 2. WBC 11,000, creatinine 1.29 and baseline 1.1-1.7. EKG showing atrial paced rhythm at [address]-T changes Chest x-ray showed negative for acute process Patient was started on amiodarone drip in the emergency room Review of Systems Review of systems CONSTITUTIONAL: No fever, no malaise, no fatigue. HEENT: No recent visual problems or hearing problems. Denied any sore throat. CARDIOVASCULAR: No orthopnea, PND, no palpitations, no syncope. PULMONARY: No shortness of breath, no cough, no hemoptysis. GASTROINTESTINAL: No diarrhea, no nausea, no vomiting, no abdominal pain. Normoactive bowel sounds. NEUROLOGICAL: No headaches, no weakness, no numbness. HEMATOLOGICAL: Denies any bleeding or petechiae. GENITOURINARY: Denies any burning micturition, frequency, or urgency. MUSCULOSKELETAL/RHEUMATOLOGICAL: Denies any joint pain, swelling, or any muscle pain. ENDOCRINE: Denies any polyuria or polydipsia. Past Medical History Past Medical History: Heart Failure History of Any Multi-Drug Resistant Organisms: None Reported Past Surgical History: Ablation, Appendectomy Additional Past Surgical History / Comment(s): Ablation May 2024, Defibrillator Jun 2024 Past Anesthesia/Blood Transfusion Reactions: No Reported Reaction Past Psychological History: No Psychological Hx Reported Smoking Status: Never smoker Past Alcohol Use History: None Reported Past Drug Use History: None Reported Medications and Allergies Home Medications Medication Instructions Recorded Confirmed Type Atorvastatin [Lipitor] 40 mg PO HS 06/21/22 10/18/24 History Spironolactone [Aldactone] 25 mg PO DAILY 06/21/22 10/18/24 History Aspirin EC [Ecotrin Low Dose] 81 mg PO DAILY 10/18/24 10/18/24 History Dapagliflozin Propanediol [Farxiga] 10 mg PO DAILY 10/18/24 10/18/24 History Furosemide [Lasix] 20 mg PO DAILY 10/18/24 10/18/24 History Metoprolol Succinate (ER) [Toprol 50 mg PO BID 10/18/24 10/18/24 History Xl] Sacubitril/Valsartan [Entresto 97 1 tab PO BID 10/18/24 10/18/24 History mg-103 mg Tablet] Allergies Allergy/AdvReac Type Severity Reaction Status Date / Time No Known Allergies Allergy Verified 10/18/24 07:58 Physical Exam Vitals: Vital Signs Temp Pulse Resp BP Pulse Ox 10/18/24 07:16 62 16 95/61 95 10/18/24 04:39 60 16 99/70 99 10/18/24 01:20 63 18 93/71 98 10/17/24 21:35 98.5 F 72 18 122/75 98 Intake and Output 10/17/24 10/18/24 10/18/24 22:59 06:59 14:59 Other: Weight 86.183 kg GENERAL: The patient is alert and oriented x3, not in any acute distress. Well developed, well nourished. HEENT: Pupils are round and equally reacting to light. EOMI. No scleral icterus. No conjunctival pallor. Normocephalic, atraumatic. No pharyngeal erythema. No thyromegaly. CARDIOVASCULAR: S1 and S2 present. No murmurs, rubs, or gallops. PULMONARY: Chest is clear to auscultation, no wheezing , no crackles. ABDOMEN: Soft, nontender, nondistended, normoactive bowel sounds. No palpable organomegaly. MUSCULOSKELETAL: No joint swelling or deformity. EXTREMITIES: No cyanosis, clubbing, or pedal edema. NEUROLOGICAL: Gross neurological examination did not reveal any focal deficits. SKIN: No rashes. no petechiae. Results CBC & Chem 7: 10/17/24 21:54 10/17/24 21:54 Labs: Abnormal Lab Results - Last 24 Hours (Table) 10/17/24 10/17/24 Range/Units 21:54 21:54 WBC 11.00 H (4.50-10.00) 10*3/uL Eosinophils # 0.55 H (0.04-0.35) 10*3/uL Basophils # 0.13 H (0.00-0.10) 10*3/uL Creatinine 1.29 H (0.66-1.25) mg/dL Glucose 157 H (74-99) mg/dL Total Bilirubin 2.0 H (0.2-1.3) mg/dL Total Protein 8.4 H (6.3-8.2) g/dL Assessment and Plan Assessment: Arrhythmia status post defibrillator firing off Mild acute kidney injury on chronic kidney disease stage II Hypertension Chronic CHF Plan: Continue with amiodarone drip Continue with aspirin Continue with metoprolol On Entresto and Aldactone Cardiology team consult Telemetry monitoring Labs and medication were reviewed.. Continue same treatment. Continue with symptomatic treatment. Resume home medication. Monitor labs and vitals. DVT and GI prophylaxis. Further recommendations as per clinical course of the patient DVT prophylaxis: Subcutaneous heparin GI Prophylaxis: Pepcid Prognosis is guarded
[2024-10-18] MEDS: AMIODARONE 450 MG in DEXTROSE 5% IN WATER 250 ML IV SCH (10:22)
[2024-10-18] MEDS: ASPIRIN 81 MG PO SCH (10:41)
[2024-10-18] MEDS: SACUBITRIL/VALSARTAN 24 MG-26 MG TABLET PO SCH ×2 (10:41→20:23)
[2024-10-18] MEDS: METOPROLOL SUCCINATE (ER) 50 MG TAB.ER.24H PO SCH (10:41)
[2024-10-18] MEDS: DAPAGLIFLOZIN PROPANEDIOL 10 MG TABLET PO SCH (10:41)
[2024-10-18] MEDS: FUROSEMIDE 20 MG TAB PO SCH (10:41)
[2024-10-18] MEDS: AMIODARONE 200 MG TAB PO SCH (10:41)
[2024-10-18] MEDS: SPIRONOLACTONE 25 MG TAB PO SCH (10:42)
--- NOTE | 2024-10-18 12:06 | P.CRDCN ---
History of Present Illness Consult date: 10/18/24 History of present illness: History of Present Illness: The patient is a 64-year-old male with known history of severe nonischemic cardiomyopathy, followed at [facility] who underwent VT ablation in May and subsequently ICD implantation. He has been doing relatively well with stable breathing pattern and no chest discomfort until yesterday while at h ome he felt pounding in the chest, mild dizziness and subsequently has a discharge from the device. He had no associated chest discomfort or syncope. This is his first discharge since the implantation. He had evidence of sustained ventricular tachycardia. He denies any PND, orthopnea or peripheral edema. He was in sinus mechanism with underlying atrial pacing. His lab data showed no evidence of troponin elevation. He is feeling well at the time of my evaluation. He has been tolerating his oral regimen without difficulties. He has a family history of cardiomyopathy in his late brother and now his sister. He has underwent gene testing. Medications: Furosemide 20 mg daily, valsartan 38962 twice a day, metoprolol succinate 50 mg twice a day, Farxiga 10 mg daily, spironolactone 25 mg daily, atorvastatin 40 mg daily, aspirin once a day Review of Systems: Respiratory: No history of asthma, bronchitis or recent cough. GI: No nausea or vomiting . No history of peptic ulcer disease. No recent GI bleed. : No hematuria or dysuria. Nervous System: No stroke or seizure. Physical Examination: 64-year-old male, alert oriented no apparent distress,Blood pressure 111/76, Heart rate 62 Head: Normocephalic. Eyes: Sclerae nonicteric. Neck: Good carotid upstroke, no bruit, no jugular venous distention. Lungs: Clear to auscultation. Heart: Regular rate and rhythm, S1-S2, no S3, no rub. Systolic ejection murmur at the base Abdomen: Soft nontender, positive bowel sounds no organomegaly. Extremities: No edema, intact distal pulses. Labs: Hemoglobin 17, potassium 4.2, BUN 20, creatinine 1.29. Magnesium 1.9. Troponin 0.012, 0.015. Chest x-ray with no acute infiltrate EKG: EKG shows paced atrial rhythm with no ST segment changes Impression: 1. Discharge from ICD with ventricular tachycardia 2. 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 History of hyperlipidemia Plan: 1. I will stop IV amiodarone and switch him to oral amiodarone at 400 mg twice a day to be tapered subsequently 2. Continue Entresto, beta-regine, spironolactone and Farxiga 3. Obtain an echocardiogram with Doppler 4. Continue telemetry 5. If he has no further symptoms probable discharge home tomorrow and follow-up at [facility] for probable repeat ablation of his ventricular tachycardia. The findings and the recommendations were discussed with the patient Thank you for this consult we will follow with you. Past Medical History Past Medical History: Heart Failure History of Any Multi-Drug Resistant Organisms: None Reported Past Surgical History: Ablation, Appendectomy Additional Past Surgical History / Comment(s): Ablation May 2024, Defibrillator Jun 2024 Past Anesthesia/Blood Transfusion Reactions: No Reported Reaction Past Psychological History: No Psychological Hx Reported Smoking Status: Never smoker Past Alcohol Use History: None Reported Past Drug Use History: None Reported Medications and Allergies Home Medications Medication Instructions Recorded Confirmed Type Atorvastatin [Lipitor] 40 mg PO HS 06/21/22 10/18/24 History Spironolactone [Aldactone] 25 mg PO DAILY 06/21/22 10/18/24 History Aspirin EC [Ecotrin Low Dose] 81 mg PO DAILY 10/18/24 10/18/24 History Dapagliflozin Propanediol [Farxiga] 10 mg PO DAILY 10/18/24 10/18/24 History Furosemide [Lasix] 20 mg PO DAILY 10/18/24 10/18/24 History Metoprolol Succinate (ER) [Toprol 50 mg PO BID 10/18/24 10/18/24 History Xl] Sacubitril/Valsartan [Entresto 97 1 tab PO BID 10/18/24 10/18/24 History mg-103 mg Tablet] Allergies Allergy/AdvReac Type Severity Reaction Status Date / Time No Known Allergies Allergy Verified 10/18/24 07:58 Physical Exam Vitals: Vital Signs Temp Pulse Resp BP Pulse Ox 10/18/24 10:46 62 18 111/76 96 10/18/24 07:16 62 16 95/61 95 10/18/24 04:39 60 16 99/70 99 10/18/24 01:20 63 18 93/71 98 10/17/24 21:35 98.5 F 72 18 122/75 98 Intake and Output 10/17/24 10/18/24 10/18/24 22:59 06:59 14:59 Other: Weight 86.183 kg Results 10/17/24 21:54 10/17/24 21:54 Cardiac Enzymes 10/17/24 10/17/24 10/18/24 Range/Units 21:54 21:54 00:35 AST 29 (17-59) U/L Troponin I 0.012 0.015 (0.000-0.034) ng/mL 10/18/24 Range/Units 02:56 AST (17-59) U/L Troponin I 0.015 (0.000-0.034) ng/mL Coagulation 10/17/24 Range/Units 21:54 PT 11.2 (10.0-12.5) sec APTT 24.1 (22.0-30.0) sec CBC 10/17/24 Range/Units 21:54 WBC 11.00 H (4.50-10.00) 10*3/uL RBC 5.40 (4.40-5.60) 10*6/uL Hgb 17.0 (13.0-17.0) g/dL Hct 48.7 (39.6-50.0) % Plt Count 221 (140-440) 10*3/uL Comprehensive Metabolic Panel 10/17/24 Range/Units 21:54 Sodium 137 (137-145) mmol/L Potassium 4.2 (3.5-5.1) mmol/L Chloride 101 (98-107) mmol/L Carbon Dioxide 27 (22-30) mmol/L BUN 20 (9-20) mg/dL Creatinine 1.29 H (0.66-1.25) mg/dL Glucose 157 H (74-99) mg/dL Calcium 9.9 (8.4-10.2) mg/dL AST 29 (17-59) U/L ALT 32 (4-49) U/L Alkaline Phosphatase 72 (38-126) U/L Total Protein 8.4 H (6.3-8.2) g/dL Albumin 4.8 (3.5-5.0) g/dL Current Medications Generic Name Dose Route Start Last Admin Trade Name Freq PRN Reason Stop Dose Admin Amiodarone HCl 400 mg 10/18/24 09:00 10/18/24 10:41 Amiodarone 200 Mg Tab PO 400 mg BID DOUGIE Administration Aspirin 81 mg 10/18/24 09:00 10/18/24 10:41 Aspirin 81 Mg PO 81 mg DAILY DOUGIE Administration Atorvastatin Calcium 40 mg 10/18/24 21:00 Atorvastatin 40 Mg Tab PO HS [facility] Dapagliflozin 10 mg 10/18/24 09:00 10/18/24 10:41 Dapagliflozin Propanediol 10 Mg Tablet PO 10 mg DAILY DOUGIE Administration Furosemide 20 mg 10/18/24 09:00 10/18/24 10:41 Furosemide 20 Mg Tab PO 20 mg DAILY DOUGIE Administration Metoprolol Succinate 50 mg 10/18/24 09:00 10/18/24 10:41 Metoprolol Succinate (Er) 50 Mg Tab.Er.24h PO 50 mg BID DOUGIE Administration Nitroglycerin 0.4 mg 10/18/24 00:00 Nitroglycerin Sl Tabs 0.4 Mg Tab SUBLINGUAL Q5M PRN Chest Pain Sacubitril/Valsartan 1 each 10/18/24 09:00 10/18/24 10:41 Sacubitril/Valsartan 24 Mg-26 Mg Tablet PO 1 each BID DOUGIE Administration Spironolactone 25 mg 10/18/24 09:00 10/18/24 10:42 Spironolactone 25 Mg Tab PO 25 mg DAILY DOUGIE Administration Intake and Output 10/17/24 10/18/24 10/18/24 22:59 06:59 14:59 Other: Weight 86.183 kg 10/17/24 21:54 10/17/24 21:54
[2024-10-18] MEDS: ATORVASTATIN 40 MG TAB PO SCH (20:23)
[2024-10-18] MEDS ORDERED: METOPROLOL SUCCINATE (ER) 25 MG TAB.ER.24H PO SCH (21:00)
[2024-10-19 08:07] LABS: African American GFR (CKD) 66 (>60 ml/min/1.73 sqM); Anion Gap 8 mmol/L; Blood Urea Nitrogen 19 mg/dL (9-20); Calcium 10.1 mg/dL (8.4-10.2); Carbon Dioxide 26 mmol/L (22-30); Chloride 102 mmol/L (98-107); Glucose 142 mg/dL (74-99); Non-African American GFR(CKD) 57 (>60 ml/min/1.73 sqM); Potassium 4.3 mmol/L (3.5-5.1); Sodium 136 mmol/L (137-145)
[2024-10-19] MEDS ORDERED: ASPIRIN 325 MG TAB PO SCH (09:00)
--- NOTE | 2024-10-19 10:50 | CA ---
Transthoracic Echo Report Name: Thompson Martinez Age: 64 Gender: M : 1960 Exam Date: 10/18/2024 13:35 Exam Location: [facility] Ht (in): 66 Wt (lb): 190 Ordering Physician: Tara Paiz Attending/Referring Phys: Network Account Manager Cyndie Son RDCS Procedure CPT: Indications: LVF Cardiac Hx: Technical Quality: Fair Contrast 1: Definity Total Dose (mL): 2 Contrast 2: Total Dose (mL): MEASUREMENTS (Male / Female) Normal Values 2D ECHO LV Diastolic Diameter PLAX 6.1 cm 4.2 - 5.9 / 3.9 - 5.3 cm LV Systolic Diameter PLAX 5.8 cm IVS Diastolic Thickness 0.8 cm 0.6 - 1.0 / 0.6 - 0.9 cm LVPW Diastolic Thickness 1.0 cm 0.6 - 1.0 / 0.6 - 0.9 cm LV Relative Wall Thickness 0.3 RV Internal Dim ED PLAX 1.3 cm LA Systolic Diameter LX 3.9 cm 3.0 - 4.0 / 2.7 - 3.8 cm LA Volume 41.3 cm??? 18 - 58 / 22 - 52 cm??? LA Volume Index 20.3 cm???/m??? 16 - 28 cm???/m??? M-MODE Aortic Root Diameter MM 3.5 cm LA Systolic Diameter MM 3.3 cm LA Ao Ratio MM 0.9 AV Cusp Separation MM 1.8 cm DOPPLER MV Area PHT 3.3 cm??? Mitral E Point Velocity 45.0 cm/s Mitral A Point Velocity 90.4 cm/s Mitral E to A Ratio 0.5 MV Deceleration Time 231.3 ms FINDINGS Left Ventricle Left ventricular ejection fraction is estimated at 10-15 %. Mildly increased left ventricular diastolic diameter. Left ventricular wall thickness normal. Severely reduced global left ventricular systolic function. Right Ventricle Normal right ventricular size and function. Unable to estimate the right ventricular systolic pressure. Right Atrium Normal right atrial size. Left Atrium Normal left atrial size. Mitral Valve Structurally normal mitral valve. Trace to mild mitral regurgitation. No mitral stenosis. Aortic Valve Trileaflet aortic valve. No aortic stenosis. No aortic regurgitation. Tricuspid Valve Structurally normal tricuspid valve. Trace tricuspid regurgitation. No tricuspid stenosis. Pulmonic Valve Structurally normal pulmonic valve. Trace pulmonic regurgitation. No pulmonic stenosis. Pericardium No pericardial or pleural effusion. Aorta Normal size aortic root and proximal ascending aorta. CONCLUSIONS Dilated LV. Severely impaired LV systolic function with EF at 10 to 15% Previewed by: Dr. Eddie Macias MD (Electronically Signed) Final Date: 19 October 2024 10:50
[2024-10-19 11:26] VITALS: BP 113/75; RESP 18; TEMP 98.4
[2024-10-19 11:54] VITALS: PULSE 68
--- NOTE | 2024-10-19 12:23 | P.PN ---
Subjective Progress Note Date: 10/19/24 History of Present Illness: The patient is a 64-year-old male with known history of severe nonischemic car diomyopathy, followed at [facility] who underwent VT ablation in May and subsequently ICD implantation. He has been doing relatively well with stable breathing pattern and no chest discomfort until yesterday while at home he felt pounding in the chest, mild dizziness and subsequently has a discharge from the device. He had no associated chest discomfort or syncope. This is his first discharge since the implantation. He had evidence of sustained ventricular tachycardia. He denies any PND, orthopnea or peripheral edema. He was in sinus mechanism with underlying atrial pacing. His lab data showed no evidence of troponin elevation. He is feeling well at the time of my evaluation. He has been tolerating his oral regimen without difficulties. He has a family history of cardiomyopathy in his late brother and now his sister. He has underwent gene testing. Medications: Furosemide 20 mg daily, valsartan 20451 twice a day, metoprolol succinate 50 mg twice a day, Farxiga 10 mg daily, spironolactone 25 mg daily, atorvastatin 40 mg daily, aspirin once a day Labs: Hemoglobin 17, potassium 4.2, BUN 20, creatinine 1.29. Magnesium 1.9. Troponin 0.012, 0.015. Chest x-ray with no acute infiltrate EKG: EKG shows paced atrial rhythm with no ST segment changes 10/19 Patient seen and examined on the cardiac stepdown unit. Echocardiogram reveals EF of 10 to 15%, dilated LV. Blood pressure 113/75, heart rate in the 60s, pulse ox 99% on room air. Repeat blood work reveals sodium 136, potassium 4.3, BUN 19 creatinine 0.32. Patient has not had any further discharges from his ICD. Patient is having short runs of ventricular tachycardia which we are aware of. Discussed with patient the need for him to follow-up with his electrifier operator at [facility] specially the EP electrifier operator. He will make an appointment as soon as possible. Discussed the need to continue amiodarone which will be at 400 mg twice a day until he sees his unit [facility] ologist. Physical Examination: 64-year-old male, alert oriented no apparent distress,Blood pressure 111/76, Heart rate 62 Head: Normocephalic. Eyes: Sclerae nonicteric. Neck: Good carotid upstroke, no bruit, no jugular venous distention. Lungs: Clear to auscultation. Heart: Regular rate and rhythm, S1-S2, no S3, no rub. Systolic ejection murmur at the base Abdomen: Soft nontender, positive bowel sounds no organomegaly. Extremities: No edema, intact distal pulses. Impression: 1. Discharge from ICD with ventricular tachycardia 2. 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 History of hyperlipidemia 4. Short episodes of nonsustained ventricular tachycardia Plan: 1. Continue patient on oral amiodarone at 400 mg twice a day until he is seen by his primary electrifier operator 2. Continue Entresto, beta-regine, spironolactone and Farxiga. Patient may resume his home dose of Entresto 3. Echocardiogram revealed EF of 10 to 15% 4. Patient is cleared for discharge home and follow-up at [facility] for probable repeat ablation of his ventricular tachycardia. The findings and the recommendations were discussed with the patient Nurse practitioner note has been reviewed, I agree with documented findings and plan of care. Patient was seen and examined. Objective - Vital Signs Vital signs: Vital Signs Temp 98.4 F 10/19/24 11:25 Pulse 68 10/19/24 11:50 Resp 18 10/19/24 11:25 BP 113/75 10/19/24 11:25 Pulse Ox 95 10/19/24 11:50 FiO2 Intake & Output 10/18/24 10/19/24 10/19/24 18:59 06:59 18:59 Intake Total 540 250 Balance 540 250 Weight 90.2 kg Intake: IV 10 Invasive Line 1 10 Oral 540 240 Other: Voiding Method Toilet Toilet # Voids 1 1 - Labs CBC & Chem 7: 10/17/24 21:54 10/19/24 07:25 Labs: Abnormal Lab Results - Last 24 Hours (Table) 10/19/24 Range/Units 07:25 Sodium 136 L (137-145) mmol/L Creatinine 1.32 H (0.66-1.25) mg/dL Glucose 142 H (74-99) mg/dL
[2024-10-19 15:28] LABS: Chol/HDL Ratio 3.56 Ratio; LDL Cholesterol,Calculated 57.6 mg/dL (0.0-131.0)
--- NOTE | 2024-10-19 15:32 | CDI ---
Documentation Clarification Form Date: 10/19/2024 03:03:26 PM From: Lyla Benson RN, CCDS Phone: [phone] Admit Date: 10/18/2024 12:02:00 AM Patient Name: Thompson Martinez Visit Number: [id number] Discharge Date: ATTENTION: The Clinical Documentation Specialists (CDI) and [facility] Coding Staff appreciate your assistance in clarifying documentation. Please respond to the clarification below the line at the bottom and electronically sign. The CDI & [facility] Coding staff will review the response and follow-up if needed. Please note: Queries are made part of the Legal Health Record. If you have any questions, please contact the author of this message via ITS. Doctor. Ovi E Sheet Your patient has the documented diagnosis of unspecified chronic CHF in the H/P. Additional information regarding the type of CHF is requested. History/Risk Factors: nonischemic cardiomyopathy, ventricular tachycardia, hyperlipidemia Clinical Indicators: 64-year-old male with known history of severe nonischemic cardiomyopathy, ICD implantation. He had discharge since the implantation. He had evidence of sustained ventricular tachycardia. VS/Pulse OX: 122/75 72 18 98.5 98% RA Echocardiogram Results: (10/18) Dilated LV. Severely impaired LV systolic function with EF at 10 to 15% Chest X Ray: Chronic changes without acute pulmonary process. Treatment: Cardiac Monitoring /Telemetry Amiodarone 400MG PO BID Lipitor 40 MG PO HS Toprol Xl 50MG PO BID Lasix 20MG PO Daily In your professional opinion, can you please clarify the type of chronic CHF if known? [ x ] Chronic Systolic Heart Failure (reduced EF) [ ] Other, please specify [ ] Unable to determine (Template Last Revised: August 2020) MTDD
--- NOTE | 2024-10-20 06:21 | P.DS ---
Providers Date of admission: 10/18/24 00:02 Attending physician: Ester Rondon Consults: 10/18/24 00:00 Consult Physician Routine Consulting Provider: Eddie Macias Consult Reason/Comments: AICD discharge Do you want consulting provider notified?: Already Contacted Primary care physician: Dayday Urias MD Hospital Course: Diagnoses: Arrhythmia status post defibrillator firing off Nonsustained V. tach Mild acute kidney injury on chronic kidney disease stage II Hypertension Chronic CHF Hospital course: This is a pleasant 64 years old male with past medical history of multiple medical problems as below. He he had recently placed defibrillator/pacemaker in [place] last June. Yesterday he was trying to get up he was feeling weak and he started walking he got fluttery feeling in his chest this is followed by electric shock from his defibrillator fired off, after that patient felt improvement however he called his doctor at [place] who referred him to the emergency room. Patient was started on amiodarone drip which is manage to oral amiodarone. He has arrhythmia Controlled. He had a few runs of V. tach which were asymptomatic but captured on telemetry. Patient still asymptomatic. Being followed closely by cardiology team. Today cardiology team has cleared him for discharge. Patient denies any other new complaint and agreeable to go home. Per collateral specialist patient needs to stay on amiodarone till he sees his collateral specialist at [facility] for another ablation procedure evaluation. This recommendation were talked to the patient and he verbalized understanding acceptance Problems and management plan were discussed with the patient and he verbalized understanding and acceptance Patient was found stable and can be discharged home in guarded prognosis however he needs follow-up as an outpatient. Patient was instructed to follow up with PCP within one week and patient agrees Patient also had instructed to follow-up with collateral specialist Dr. Everett as an outpatient and he agrees Physical exam Gen: patient is a AAOx3, no distress CVS: S1-S2, RRR, no murmur Lungs: B/L CTA, no wheezing Abdomen: soft, no distention, no tenderness, positive bowel sounds Extremity: no leg edema or induration Time spent more than 35 minutes Plan - Discharge Summary Discharge Rx Participant: No New Discharge Prescriptions: New RX: Amiodarone [Cordarone] 400 mg PO BID #120 tab RX: Nitroglycerin Sl Tabs [Nitrostat] 0.4 mg SUBLINGUAL Q5M PRN #10 tab PRN Reason: Chest Pain Continue RX: Spironolactone [Aldactone] 25 mg PO DAILY RX: Furosemide [Lasix] 20 mg PO DAILY RX: Sacubitril/Valsartan [Entresto 97 mg-103 mg Tablet] 1 tab PO BID RX: Atorvastatin [Lipitor] 40 mg PO HS RX: Aspirin EC [Ecotrin Low Dose] 81 mg PO DAILY RX: Metoprolol Succinate (ER) [Toprol XL] 50 mg PO BID RX: Dapagliflozin Propanediol [Farxiga] 10 mg PO DAILY Discharge Medication List RX: Atorvastatin [Lipitor] 40 mg PO HS 06/21/22 [History] RX: Spironolactone [Aldactone] 25 mg PO DAILY 06/21/22 [History] RX: Aspirin EC [Ecotrin Low Dose] 81 mg PO DAILY 10/18/24 [History] RX: Dapagliflozin Propanediol [Farxiga] 10 mg PO DAILY 10/18/24 [History] RX: Furosemide [Lasix] 20 mg PO DAILY 10/18/24 [History] RX: Metoprolol Succinate (ER) [Toprol XL] 50 mg PO BID 10/18/24 [History] RX: Sacubitril/Valsartan [Entresto 97 mg-103 mg Tablet] 1 tab PO BID 10/18/24 [History] RX: Amiodarone [Cordarone] 400 mg PO BID #120 tab 10/19/24 [Rx] RX: Nitroglycerin Sl Tabs [Nitrostat] 0.4 mg SUBLINGUAL Q5M PRN #10 tab 10/19/24 [Rx] Follow up Appointment(s)/Referral(s): Eddie Macias MD [STAFF PHYSICIAN] - 10/30/24 11:00 am Dayday Urias MD [Primary Care Provider] - 10/23/24 3:30 pm () Patient Instructions/Handouts: Supraventricular Tachycardia (DC), Chest Pain (DC), Implantable Cardioverter Defibrillator (DC) Activity/Diet/Wound Care/Special Instructions: heart healthy diet activity is restricted till you see your doctor continue with Amiodarone till you talk to your collateral specialist at [facility] then tapered it off per his recommendations please Discharge Disposition: HOME SELF-CARE
== END 2024-10-19 16:07 | disposition home or self-care (01) | DRG 309 ==
LOC: EC 21:28 → 3SCARD 10-18 00:01 → OBSVTOIN 10-18 00:02 → 3SCARD 10-18 00:22
PROVIDERS: ADMIT Hospitalist; ATTEND Hospitalist
DX: I47.20 Ventricular tachycardia, unspecified (principal); I13.0 Hypertensive heart and chronic kidney disease with heart failure and stage 1 through stage 4 chronic kidney disease, or unspecified chronic kidney disease; N17.9 Acute kidney failure, unspecified; I50.22 Chronic systolic (congestive) heart failure; I42.8 Other cardiomyopathies; E78.5 Hyperlipidemia, unspecified; N18.2 Chronic kidney disease, stage 2 (mild); Z79.82 Long term (current) use of aspirin; Z79.84 Long term (current) use of oral hypoglycemic drugs; Z79.899 Other long term (current) drug therapy; Z95.810 Presence of automatic (implantable) cardiac defibrillator
CPT/HCPCS: 36415; 71046; 80048; 80053; 80061; 83735; 84484; 85025; 85610; 85730; 93005; 93306; 96365; 96366; 96375; 99291

== ENCOUNTER → 2024-11-08 | Outpatient (CLI) | payer BC ==
--- NOTE | 2024-11-08 08:56 | US ---
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 FINDINGS: EXAM MEASUREMENTS: Liver Length: 16.5 cm Gallbladder Wall: 0.2 cm CBD: 0.5 cm, color Doppler imaging was utilized to isolate the common bile duct for measurement. Spleen: 10.0 cm Right Kidney: 10.7 x 4.9 x 6.2 cm Left Kidney: 10.0 x 4.2 x 6.0 cm THERAPIST NOTES: bowel gas limits exam Pancreas: not seen due to bowel gas Liver: normal size, heterogeneous echotexture with geographic areas of hypoechogenicity. Gallbladder: wnl Evidence for sonographic Lundberg's sign: no CBD: wnl Spleen: wnl Right Kidney: wnl, No hydronephrosis, calculi or masses seen Left Kidney: wnl, No hydronephrosis, calculi or masses seen Upper IVC: wnl Abd Aorta: distal portion gassed out IMPRESSION: 1. Heterogeneous ultrasound appearance to the liver with some geographic areas of altered echogenicit y. This may represent areas of fatty infiltration. Correlate with LFTs, liver protocol, the patient r isk factors. Dual phase liver CT may be helpful in providing further evaluation and excluding any underlying lesio n. 2. No gallstones or biliary ductal dilatation. [facility], , 11/08/2024 8:53 AM
== END | disposition home or self-care (01) ==
LOC: RADUSWWP 06:53
PROVIDERS: ATTEND Internal Medicine
DX: E80.6 Other disorders of bilirubin metabolism (principal); K76.89 Other specified diseases of liver
CPT/HCPCS: 76700

== ENCOUNTER → 2025-01-01 | Outpatient (CLI) | payer BC ==
[2025-01-01 07:18] LABS: African American GFR (CKD) 57 (>60 ml/min/1.73 sqM); Blood Urea Nitrogen 18 mg/dL (9-20); Non-African American GFR(CKD) 49 (>60 ml/min/1.73 sqM)
--- NOTE | 2025-01-01 09:24 | CT ---
EXAMINATION TYPE: CT abdomen wo/w con DATE OF EXAM: 01/01/2025 8:32 AM COMPARISON: Correlation ultrasound 11/08/2024 CLINICAL INDICATION: Male, 64 years old with history of E80.6 OTHER DISORDERS OF BILIRUBIN METABOLISM ; dual phase liiver requested, fatty liver per patient TECHNIQUE: CT of the abdomen before and after IV contrast. 80 mL Isovue-370 contrast material was ad ministered. Additional delayed scan per dual liver CT protocol. Coronal and sagittal reconstructions performed. Contrast used:80 ml mL of Isovue 370 without and with IV Contrast, (none if empty) Oral contrast used: with Oral Contrast (none if empty) CT DLP: 1931.80 mGycm, Automated exposure control for dose reduction was used. FINDINGS: LOWER CHEST: AICD leads right atrial and right ventricular are present. Heart normal size without per icardial effusion. Some patchy interstitial changes at the right base may be chronic interstitial sca rring and can be correlated for any acute respiratory signs/symptoms. ABDOMEN LIVER: Liver normal size at 14.6 cm. No significant fatty infiltration appreciated by CT. No focal li anisha lesion is identified by CT. GALLBLADDER AND BILE DUCTS: Unremarkable. PANCREAS: Unremarkable. SPLEEN: Tiny hilar splenule. ADRENAL GLANDS: Unremarkable. KIDNEYS AND URETERS: No evidence of hydronephrosis or renal calculus. The ureters are unremarkable. Mild perinephric edema on both sides may be senescent change or could reflect underlying chronic kidn ey disease. PELVIS Not imaged. Partially visualized prominently distended bladder. ABDOMEN & PELVIS STOMACH AND BOWEL: Tiny hiatal hernia.Tiny 2.5 cm diverticulum along the third portion of the duodenu m projecting inferiorly. No evidence of bowel obstruction. Efnk-ba-[id number] stool burden. No pericolo michelle inflammatory change. PERITONEUM/RETROPERITONEUM: No evidence of pneumoperitoneum or free fluid. VASCULATURE: No evidence of aortic aneurysm. MUSCULOSKELETAL: Moderate degenerative disc disease L5-S1. LYMPH NODES: No gross evidence for lymphadenopathy. SOFT TISSUE/ABDOMINAL WALL: Unremarkable IMPRESSION: 1. No specific CT abnormality of the liver. No focal lesion identified. The altered echogenicity on ultrasound may have been technical artifact but could also reflect mild fatty infiltration or hepatit is not appreciable by CT. Clinically correlate. 2. Partially visualized prominently distended bladder. Correlate to ensure that this represents volun tary retention. [facility], Workstation: [id number], 01/01/2025 9:21 AM
== END | disposition home or self-care (01) ==
LOC: RADCTMAIN 06:36
PROVIDERS: ATTEND Internal Medicine
DX: N32.89 Other specified disorders of bladder (principal); E80.6 Other disorders of bilirubin metabolism; K76.0 Fatty (change of) liver, not elsewhere classified
CPT/HCPCS: 82565; 84520; 74170; 36415; Q9967